=== PATIENT | female | born 1955 | race Caucasian/White ===

== ENCOUNTER 2022-10-12 10:51 | Emergency (ER) | payer MEDICARE, MEDICAID ==
[~2022-10-12] VITALS: Ht 162 cm; Wt 79.0 kg
[~2022-10-12 10:51] MED LIST: ALBU8.5H2 IH; ALPR0.5T PO; BNZ20T GT; CYCL10TA9 PO; FURO20TA4 PO; GEMF600T3 PO; GLIP10TA13 PO; HYDR-1231 PO; HYDR-3714 PO; IBUP800T26 PO; LVT.1T PO; MTF500T PO; PRAV10TA PO
--- NOTE | 2022-10-12 11:06 | ED Cough/URI ---
General Chief Complaint: Respiratory Problems Stated Complaint: SOA Nursing Triage Note: PT ARRIVED PER EMS, PT HAS SOA AND COUGHING, PT WAS GIVEN RT [place] DUONEB BY EMS. Source: patient Exam Limitations: no limitations History of Present Illness Date Seen by Provider: Oct 12, 2022 Time Seen by Provider: 11:06 Initial Comments 66 y/o female presents today by EMS. Pt states she was having a coughing spell at home this morning that lasted approximately one hour, could not quit coughing and started feeling very short of breath, so called EMS. Pt reports h/o chronic bronchitis, takes Advair daily. She does not have any rescue medications that she has been prescribed. Pt denies recent fevers, chills, body aches, headache, congestion, sore throat, runny nose. She denies chest pain. She was given DuoNeb treatment by EMS and she states that helped. She was placed on oxygen at 2L as well. Timing/Duration: this morning Severity/Quality: severe, dry cough Prior Episodes/Possible Cause: chronic episodes Modifying Factors: Worse With Activity, Worse With Lying Down Associated Symptoms: cough, muscle aches, nasal congestion, shortness of breath Allergies and Home Medications Allergies Coded Allergies: No Known Drug Allergies (Unverified , 05/23/14) Patient Home Medication List Home Medication List Reviewed: Yes Albuterol (Proair Hfa) 8.5 Gm Hfa.aer.ad, 2 PUFF IH RTQ4HR PRN for SHORTNESS OF BREATH Prescribed by: INDERJIT RM on 02/22/152139 Alprazolam (Xanax) 0.5 Mg Tablet, 0.5 MG PO, (Reported) Entered as Reported by: NOY HOLM on 05/23/14446 Benazepril Hcl (Lotensin Tablet) 20 Mg Tab, 40 MG GT, (Reported) Entered as Reported by: NOY HOLM on 05/23/14446 Cyclobenzaprine Hcl (Cyclobenzaprine Hcl) 10 Mg Tablet, 1 EACH PO Q8H PRN for SPASMS Prescribed by: INDERJIT RM on 02/22/152132 Furosemide (Furosemide) 20 Mg Tablet, 1 EACH PO BID, (Reported) Entered as Reported by: NOY HOLM on 05/23/14446 Gemfibrozil (Gemfibrozil) 600 Mg Tablet, 1 EACH PO BID, (Reported) Entered as Reported by: NOY HOLM on 05/23/14446 Glipizide (Glipizide) 10 Mg Tablet, 1 EACH PO BID, (Reported) Entered as Reported by: NOY HOLM on 05/23/14446 Hydrocodone Bit/Acetaminophen (Hydrocodone-Apap 5-325 Tab) 1 Tab Tablet, 1 TAB PO Q4H PRN for PAIN Prescribed by: INDERJIT RM on 05/30/142312 Hydrocodone Bit/Acetaminophen (Hydrocodone-Apap 5-325 Tablet) 1 Tab Tablet, 1 TAB PO Q4H PRN for PAIN Prescribed by: INDERJIT RM on 02/22/152132 Ibuprofen (Ibuprofen) 800 Mg Tablet, 800 MG PO q8h PRN for PAIN Prescribed by: INDERJIT RM on 05/30/142312 Levothyroxine Sodium (Levothyroxine 100 Mcg Tab) 100 Mcg Tablet, 1 EACH PO DAILY, (Reported) Entered as Reported by: NOY HOLM on 05/23/14446 Metformin Hcl (Metformin 500 Mg) 500 Mg Tablet, 1 EACH PO BID WITH MEALS, (Reported) Entered as Reported by: NOY HOLM on 05/23/14446 Pravastatin Sodium (Pravastatin Sodium) 10 Mg Tablet, 40 MG PO HS, (Reported) Entered as Reported by: NOY HOLM on 05/23/14446 Review of Systems Review of Systems Constitutional: No chills, No diaphoresis, No dizziness, No fever; malaise; No weakness EENTM: nose congestion; No ear pain, No mouth pain, No epistaxis, No throat pain, No throat swelling Respiratory: cough; No hemoptysis, No orthopnea, No stridor, No wheezing Cardiovascular: No chest pain, No edema, No palpitations, No syncope Gastrointestinal: No abdominal pain, No diarrhea, No nausea, No vomiting Musculoskeletal: no symptoms reported Skin: no symptoms reported Psychiatric/Neurological: No Symptoms Reported Hematologic/Lymphatic: No Symptoms Reported Immunological/Allergic: no symptoms reported Past Uagwjyj-Tnbffr-Pjjbsz Hx Patient Social History Tobacco Use?: Yes Tobacco type used: Cigarettes Smoking Status: Heavy Tobacco Smoker (2PPD) Substance use?: No Alcohol Use?: No Pt feels they are or have been: No Immunizations Up To Date Tetanus Booster (TDap): Unknown Influenza Vaccine Up-to-Date: No; Not Current Past Medical History Surgery/Hospitalization HX: DIABETES,HTN, Chronic Bronchitis Reproductive Disorders: No Sexually Transmitted Disease: No HIV/AIDS: No Hypothyroidsim, Diabetes, Non-Insulin dep Anxiety Adverse Reaction/Blood Tranf: No Family Medical History No Pertinent Family Hx Physical Exam Vital Signs - First Documented 10/12/22 10/12/22 10:54 13:25 Temp 35.8 Pulse 79 Resp 20 B/P (MAP) 145/82 (103) Pulse Ox 92 O2 Delivery Room Air Capillary Refill : Less Than 3 Seconds Height: 5'3" Weight: 180lbs. oz. 81.894555rn; 30.00 BMI Method:Stated General Appearance: WD/WN, no apparent distress HEENT: PERRL/EOMI, normal ENT inspection, TMs normal, pharynx normal Neck: non-tender, full range of motion, supple, normal inspection Respiratory: chest non-tender, no respiratory distress, no accessory muscle use, decreased breath sounds Cardiovascular: normal peripheral pulses, regular rate, rhythm, no edema Gastrointestinal: normal bowel sounds, non tender, soft Neurologic/Psychiatric: no motor/sensory deficits, alert, normal mood/affect, oriented x 3 Skin: normal color, warm/dry Progress/Results/Core Measures Suspected Sepsis SIRS Temperature: Pulse: 79 Respiratory Rate: 20 Laboratory Tests 10/12/22 10:56: White Blood Count 13.6H Blood Pressure 145 /82 Mean: 103 Laboratory Tests 10/12/22 10:56: Creatinine 0.90, Platelet Count 493H, Total Bilirubin 0.3 Results/Orders Lab Results Laboratory Tests Test 10/12/22 10:56 10/12/22 11:54 Range/Units White Blood Count 13.6 H 4.3-11.0 10^3/uL Red Blood Count 4.55 3.80-5.11 10^6/uL Hemoglobin 14.3 11.5-16.0 g/dL Hematocrit 41 35-52 % Mean Corpuscular Volume 91 80-99 fL Mean Corpuscular Hemoglobin 31 25-34 pg Mean Corpuscular Hemoglobin Concent 35 32-36 g/dL Red Cell Distribution Width 12.3 10.0-14.5 % Platelet Count 493 H 130-400 10^3/uL Mean Platelet Volume 9.9 9.0-12.2 fL Immature Granulocyte % (Auto) 0 % Neutrophils (%) (Auto) 73 42-75 % Lymphocytes (%) (Auto) 18 12-44 % Monocytes (%) (Auto) 7 0-12 % Eosinophils (%) (Auto) 1 0-10 % Basophils (%) (Auto) 1 0-10 % Neutrophils # (Auto) 10.0 H 1.8-7.8 10^3/uL Lymphocytes # (Auto) 2.4 1.0-4.0 10^3/uL Monocytes # (Auto) 0.9 0.0-1.0 10^3/uL Eosinophils # (Auto) 0.2 0.0-0.3 10^3/uL Basophils # (Auto) 0.1 0.0-0.1 10^3/uL Immature Granulocyte # (Auto) 0.1 0.0-0.1 10^3/uL Sodium Level 133 L 135-145 MMOL/L Potassium Level 4.4 3.6-5.0 MMOL/L Chloride Level 96 L 98-107 MMOL/L Carbon Dioxide Level 24 21-32 MMOL/L Anion Gap 13 5-14 MMOL/L Blood Urea Nitrogen 16 7-18 MG/DL Creatinine 0.90 0.60-1.30 MG/DL Estimat Glomerular Filtration Rate 71 BUN/Creatinine Ratio 18 Glucose Level 152 H 70-105 MG/DL Calcium Level 9.8 8.5-10.1 MG/DL Corrected Calcium 8.5-10.1 MG/DL Total Bilirubin 0.3 0.1-1.0 MG/DL Aspartate Amino Transf (AST/SGOT) 17 5-34 U/L Alanine Aminotransferase (ALT/SGPT) 15 0-55 U/L Alkaline Phosphatase 102 40-136 U/L Total Protein 8.1 6.4-8.2 GM/DL Albumin 4.7 H 3.2-4.5 GM/DL Influenza Type A (RT-PCR) Not Detected Not Detecte Influenza Type B (RT-PCR) Not Detected Not Detecte SARS-CoV-2 RNA (RT-PCR) Not Detected Not Detecte My Orders Orders - BENJAMIN PENA CURTAIN INSPECTOR Covid 19 Inhouse Test (10/12/22 11:09) Chest 1 View, Ap/Pa Only (10/12/22 11:09) Cbc With Automated Diff (10/12/22 11:09) Comprehensive Metabolic Panel (10/12/22 11:09) Influenza A And B By Pcr (10/12/22 11:09) Isolation Central Supply Req (10/12/22 11:09) Rx-Ipratropium [place] (Rx-Atrovent 0.5 (10/12/22 12:37) Rx-Albuterol Nebs (Rx-Proventil Nebs) (10/12/22 12:37) Vital Signs/I&O 10/12/22 10/12/22 10:54 13:25 Temp 35.8 Pulse 79 69 Resp 20 24 B/P (MAP) 145/82 (103) 119/74 Pulse Ox 92 93 O2 Delivery Room Air Capillary Refill : Less Than 3 Seconds Blood Pressure Mean: 103 Progress Note : Progress Note Pt titrated off supplemental oxygen and O2 sats 92-96% on RA. Pt is in NAD, nontoxic appearing. She reports feeling improved since arriving to ED. No acute findings on CXR. COVID and influenza A/B negative. Diagnostic Imaging Diagonstic Imaging: Xray Plain Films/CT/US/NM/MRI: chest Comments no acute findings Departure Impression Primary Impression: Chronic bronchitis Disposition: 01 HOME, SELF-CARE Condition: Improved Departure-Patient Inst. Decision time for Depature: 13:12 Add. Discharge Instructions: Albuterol every 4 hours as needed, ipratropium every 6 hours a needed. Call your PCP tomorrow to schedule follow up appointment this week. All discharge instructions reviewed with patient and/or family. Voiced understanding. BENJAMIN PENA CURTAIN INSPECTOR Oct 12, 2022 11:06
[2022-10-12 11:15] LABS: BASOPHILS # (AUTO) 0.1 10^3/uL (0.0-0.1); BASOPHILS % (AUTO) 1 % (0-10); EOSINOPHILS # (AUTO) 0.2 10^3/uL (0.0-0.3); EOSINOPHILS % (AUTO) 1 % (0-10); HEMATOCRIT 41 % (35-52); HEMOGLOBIN 14.3 g/dL (11.5-16.0); LYMPHOCYTES # (AUTO) 2.4 10^3/uL (1.0-4.0); LYMPHOCYTES % (AUTO) 18 % (12-44); MEAN CORPUSCULAR HEMOGLOBIN 31 pg (25-34); MEAN CORPUSCULAR HGB CONC 35 g/dL (32-36); MEAN CORPUSCULAR VOLUME 91 fL (80-99); MEAN PLATELET VOLUME 9.9 fL (9.0-12.2); MONOCYTES # (AUTO) 0.9 10^3/uL (0.0-1.0); MONOCYTES % (AUTO) 7 % (0-12); NEUTROPHILS % (AUTO) 73 % (42-75); PLATELET COUNT 493 10^3/uL (130-400); WHITE BLOOD COUNT 13.6 10^3/uL (4.3-11.0)
[2022-10-12 11:30] LABS: ALBUMIN 4.7 GM/DL (3.2-4.5); CHLORIDE 96 MMOL/L (98-107); POTASSIUM 4.4 MMOL/L (3.6-5.0); SODIUM 133 MMOL/L (135-145)
[2022-10-12 11:31] LABS: CALCIUM 9.8 MG/DL (8.5-10.1)
--- NOTE | 2022-10-12 11:31 | Diagnostic Imaging Report ---
EXAMINATION: Chest 1 view HISTORY: Short of breath and cough. COMPARISON: None available. FINDINGS: The lungs are clear without edema or pneumonia. No pleural effusion or pneumothorax. Heart size is normal. IMPRESSION: 1. Clear lungs. Dictated by: Dictated on workstation # [id number]
[2022-10-12 11:32] LABS: GLUCOSE 152 MG/DL (70-105)
[2022-10-12 11:33] LABS: TOTAL PROTEIN 8.1 GM/DL (6.4-8.2)
[2022-10-12 11:34] LABS: BILIRUBIN,TOTAL 0.3 MG/DL (0.1-1.0); CARBON DIOXIDE 24 MMOL/L (21-32)
[2022-10-12 11:36] LABS: ALKALINE PHOSPHATASE 102 U/L (40-136); GFR ESTIMATED 71
[2022-10-12 11:37] LABS: BUN/CREATININE RATIO 18
[2022-10-12 11:39] LABS: ALANINE AMINOTRANSFERASE 15 U/L (0-55)
[2022-10-12] MEDS ORDERED: RX-IPRATROPIUM BROMIDE 0.5 MG/2.5 ML #3 (ATROVENT) IH STA (12:37)
[2022-10-12] MEDS ORDERED: RX-ALBUTEROL NEB 2.5 MG/3 ML PACK #5 IH STA (12:37)
[2022-10-12 13:25] VITALS: BP 119/74
== END 2022-10-12 13:25 | disposition home or self-care (01) ==
LOC: EDUNIT# 10:51 → ER 10:53
DX: J42 Unspecified chronic bronchitis (principal); F17.210 Nicotine dependence, cigarettes, uncomplicated; Z20.822 Contact with and (suspected) exposure to COVID-19
CPT/HCPCS: 36415; 71045; 80053; 85025; 87636